=== PATIENT | male | born 1990 | race Hispanic/Latino ===

== ENCOUNTER 2022-08-08 13:02 | Emergency (ER) | payer OTHER ==
[~2022-08-08] VITALS: Ht 182.9 cm; Wt 118.0 kg
[2022-08-08] VITALS (12 sets, daily range): BP systolic 122–185; BP diastolic 79–110
[2022-08-08 14:52] LABS: BASO% 0.4 % (0-3); HEMATOCRIT 44.2 % (39.0-50.0); HEMOGLOBIN 14.4 g/dl (14.0-18.0); IMMATURE GRANULOCYTES 0.9 % (0.0-5.0); LYMPH% 19.6 % (15-41); MEAN CELL VOLUME 86.5 fL CALC (80.0-100.0); MEAN CORPUSCULAR HGB 28.2 pG CALC (26.0-32.0); MEAN CORPUSCULAR HGB CONC 32.6 g/dL CAL (32.0-36.0); NEUT# 5.75 thou/uL (1.82-7.42); NEUT% 68.1 % (42-76); RED BLOOD COUNT 5.11 mill/uL (4.70-6.10); RED CELL DISTRI WIDTH 12.4 % (11.5-15.5)
[2022-08-08] MEDS ORDERED: METHOCARBAMOL500 MG PO (18:12)
[2022-08-08] MEDS ORDERED: KEFLEX500 MG PO (18:12)
[2022-08-08] MEDS ORDERED: NEOSPORIN3.5 G1 TOP (18:12)
[2022-08-08] MEDS ORDERED: IBUPROFEN600 MG PO (18:12)
== END 2022-08-08 18:50 | disposition home or self-care (01) | DRG 605 ==
LOC: ED 13:02
PROVIDERS: Family Medicine
PROC: 0HQ1XZZ Repair Face Skin, External Approach (ICD-10-PCS; principal; 2022-08-08)
DX: S01.81XA Laceration without foreign body of other part of head, initial encounter (principal); V44.6XXA Car passenger injured in collision with heavy transport vehicle or bus in traffic accident, initial encounter; Z20.822 Contact with and (suspected) exposure to COVID-19